=== PATIENT | female | born 1995 | race Caucasian/White ===

== ENCOUNTER 2016-10-05 06:09 | Emergency (ER) | payer MEDICAID ==
[2016-10-05 06:09] VITALS: BMI 25.2
[2016-10-05 06:27] VITALS: BP 128/82; TEMP 98.7; O2SAT 100
[2016-10-05] MEDS ORDERED: Sodium Chloride 0.9% 1,000 ML IV STA (07:20)
[2016-10-05] MEDS ORDERED: Albuterol-Ipratrop 3 mg / 0.5 (3 ml) UD INH STA (07:20)
[2016-10-05 07:26] VITALS: PULSE 103; RESP 14
[2016-10-05 07:32] LABS: BASO # 0.1 K/uL (0.0-0.2); BASO % 0.8 % (0.0-2.0); EOS # 0.2 K/uL (0.0-0.7); EOS % 2.7 % (0.0-4.0); HEMATOCRIT 36.3 % (34.0-47.0); LYMPH # 1.4 K/uL (1.0-4.3); LYMPH % 19.7 % (20.0-40.0); MEAN CORPUSCULAR HEMOGLOBIN 32.5 pg (27.0-31.0); MEAN CORPUSCULAR HGB CONC 34.6 g/dL (33.0-37.0); MEAN PLATELET VOLUME 8.9 fl (7.2-11.7); MONO # 1.1 K/uL (0.0-0.8); MONO % 16.1 % (0.0-10.0); NEUT # 4.3 K/uL (1.8-7.0); NEUT % 60.7 % (50.0-75.0); RED CELL DISTRIBUTION WIDTH 12.4 % (11.5-14.5); WHITE BLOOD COUNT 7.1 K/uL (4.8-10.8)
[2016-10-05 07:43] LABS: ALB/GLOB RATIO 1.4 (1.0-2.1); ALKALINE PHOSPHATASE 110 U/L (38-126); ALT/SGPT 24 U/L (9-52); AST/SGOT 17 U/L (14-36); BILIRUBIN,TOTAL 0.8 mg/dl (0.2-1.3); BLOOD UREA NITROGEN 14 mg/dl (7-17); CALCIUM 9.5 mg/dL (8.4-10.2); CARBON DIOXIDE 26 mmol/L (22-30); CHLORIDE 104 mmol/L (98-107); GFR AFRICAN-AMERICAN > 60; GLUCOSE,RANDOM 89 mg/dL (65-105); POTASSIUM 4.2 MMOL/L (3.6-5.0); SODIUM 144 mmol/l (132-148); TOTAL PROTEIN 7.8 G/DL (6.3-8.2)
--- NOTE | 2016-10-05 08:09 | ED PDOC ---
HPI: CCC, URI, Sore Throat Time Seen by Provider: 10/05/16 07:11 Chief Complaint (Nursing): Chest Pain Chief Complaint (Provider): cough, vomiting, malaise History Per: Patient History/Exam Limitations: no limitations Onset/Duration Of Symptoms: Days (2) Current Symptoms Are (Timing): Still Present Location Of Pain: Diffuse Myalgias, Headache, Other (cough/chest) Sick Contacts (Context): None Associated Symptoms: Chills, Cough, Myalgias, Nausea, Vomiting. denies: Diarrhea Severity: Moderate Additional Complaint(s): 21yo female c/o ongoing cough w/ resultant chest wall discomfort, several episodes post tussive vomiting, headache and malaise. Denies abdominal pain, diarrhea or neck pain/stiffness. Past Medical History Reviewed: Historical Data, Nursing Documentation, Vital Signs Vital Signs: Last Vital Signs Temp 98.7 F 10/05/16 06:25 Pulse 103 H 10/05/16 07:15 Resp 14 10/05/16 06:45 BP 128/82 10/05/16 06:25 Pulse Ox 100 10/05/16 08:09 - Medical History PMH: No Chronic Diseases - Surgical History Surgical History: Tonsillectomy - Family History Family History: States: Unknown Family Hx - Living Arrangements Living Arrangements: With Family - Social History Current smoker - smoking cessation education provided: No Drugs: Denies - Home Medications Home Medications: Ambulatory Orders Medication Instructions Recorded Amoxicillin/Clavulanate [Augmentin 1 tab PO BID #20 tab 05/18/16 875 MG-125 MG] Aspirin/Acetaminophen/Caffeine 1 each PO Q6H PRN #20 tablet 05/18/16 [Excedrin Migraine Caplet] Albuterol HFA [Ventolin HFA 90 2 puff IH Q4 PRN #1 inh 10/05/16 mcg/actuation (8 g)] Benzonatate [Tessalon Perles] 100 mg PO Q8 PRN #15 sgl 10/05/16 Guaifenesin/Pseudoephedrne HCl 1 each PO BID #10 tab.er.12h 10/05/16 [Mucinex D ER 1,200-120 mg Tab] Ibuprofen [Motrin Tab] 600 mg PO Q6 PRN #15 tab 10/05/16 Ondansetron [Zofran] 4 mg PO Q6H PRN #10 tab 10/05/16 levoFLOXacin [Levaquin] 750 mg PO DAILY #7 tab 10/05/16 - Allergies Allergies/Adverse Reactions: Allergies Allergy/AdvReac Type Severity Reaction Status Date / Time No Known Allergies Allergy Verified 07/21/16 00:48 Review of Systems Constitutional: Positive for: Chills, Malaise Eyes: Negative for: Vision Change, Eyelid Inflammation ENT: Positive for: Throat Pain. Negative for: Ear Pain, Ear Discharge, Mouth Swelling, Throat Swelling Cardiovascular: Positive for: Chest Pain. Negative for: Palpitations, Orthopnea , Edema Respiratory: Positive for: Cough, Pleuritic Pain. Negative for: Shortness of Breath, SOB with Exertion, Wheezing Gastrointestinal: Positive for: Nausea, Vomiting. Negative for: Abdominal Pain Genitourinary Female: Negative for: Dysuria, Frequency Musculoskeletal: Negative for: Neck Pain, Shoulder Pain Skin: Negative for: Rash, Lesions, Jaundice Neurological: Positive for: Headache. Negative for: Weakness, Numbness, Dizziness Psych: Negative for: Depression Physical Exam - Reviewed Nursing Documentation Reviewed: Yes Vital Signs Reviewed: Yes - Physical Exam Appears: Positive for: Well, Non-toxic, No Acute Distress Head Exam: Positive for: ATRAUMATIC, NORMAL INSPECTION, NORMOCEPHALIC Skin: Positive for: Normal Color, Warm, DRY Eye Exam: Positive for: EOMI, Normal appearance, PERRL ENT: Positive for: Pharyngeal Erythema (mild, small vesicle soft pallata) Neck: Positive for: Normal, Painless ROM, Supple. Negative for: Limited ROM, Pain On Movement Of Neck Cardiovascular/Chest: Positive for: Regular Rate, Rhythm Respiratory: Positive for: Normal Breath Sounds, Other (+cough w deep inspiration). Negative for: Wheezing, Respiratory Distress Gastrointestinal/Abdominal: Positive for: Bowel Sounds, Soft. Negative for: Tenderness, Guarding Back: Positive for: Normal Inspection Extremity: Positive for: Normal ROM. Negative for: Deformity, Swelling Neurologic/Psych: Positive for: Alert, cap maker II-XII (intact), Oriented. Negative for: Motor/Sensory Deficits - Laboratory Results Result Diagrams: 10/05/16 07:25 10/05/16 07:25 - ECG O2 Sat by Pulse Oximetry: 100 Disposition - Clinical Impression Clinical Impression: Pneumonia, Vomiting - Patient ED Disposition Is Patient to be Admitted: No Counseled Patient/Family Regarding: Studies Performed, Diagnosis, Need For Followup, Rx Given - Disposition Referrals: Vinnie Torres MD [Staff Provider] - Disposition: Routine/Home Disposition Time: 08:40 Condition: STABLE Additional Instructions: Take antibiotics as directed. Avoid physical exertion or exercise for at least 2 weeks. Return to ER for any worse or new symptoms. Prescriptions: levoFLOXacin [Levaquin] 750 mg PO DAILY #7 tab Ibuprofen [Motrin Tab] 600 mg PO Q6 PRN #15 tab PRN Reason: Pain, Moderate (4-7) Guaifenesin/Pseudoephedrne HCl [Mucinex D ER 1,200-120 mg Tab] 1 each PO BID # 10 tab.er.12h Ondansetron [Zofran] 4 mg PO Q6H PRN #10 tab PRN Reason: Nausea/Vomiting Instructions: Community Acquired Pneumonia (ED), Acute Cough (ED)
--- NOTE | 2016-10-05 09:24 | RAD ---
HISTORY: cough COMPARISON: No prior. TECHNIQUE: Chest PA and lateral FINDINGS: LUNGS: Vague increased in density medial aspect right middle lobe could represent some atelectasis however developing infiltrate may be excluded with followup radiographs. PLEURA: No significant pleural effusion identified. No pneumothorax apparent. CARDIOVASCULAR: Normal. OSSEOUS STRUCTURES: No significant abnormalities. VISUALIZED UPPER ABDOMEN: Normal. OTHER FINDINGS: None. IMPRESSION: Vague increased in density medial aspect right middle lobe could represent some atelectasis however developing infiltrate may be excluded with followup radiographs.
--- NOTE | 2016-10-05 14:24 | CARD ---
APPROVED REPORT EKG Measurement Heart [id number] NM 142P78 [id number] <Conclusion> Sinus tachycardia Possible Left atrial enlargement Borderline ECG
== END 2016-10-05 09:32 | disposition home or self-care (01) ==
LOC: H.ER 06:09
DX: J18.9 Pneumonia, unspecified organism (principal); R05 Cough; R07.89 Other chest pain; R11.10 Vomiting, unspecified

== ENCOUNTER 2016-10-05 19:15 | Emergency (ER) | payer MEDICAID ==
[2016-10-05 19:16] VITALS: BMI 25.2
[2016-10-05 19:27] VITALS: BP 143/89; TEMP 98.2; O2SAT 100
[2016-10-05 19:29] VITALS: RESP 20
--- NOTE | 2016-10-05 19:58 | ED PDOC ---
HPI: SOB/CHF/COPD Time Seen by Provider: 10/05/16 19:55 Chief Complaint (Nursing): Shortness Of Breath Chief Complaint (Provider): Cough/Shortness of Breath History Per: Patient Onset/Duration Of Symptoms: Days (x2), Intermittent Episodes Current Symptoms Are (Timing): Still Present Initiating Event: Upper Respiratory Illness (diagnosed with pnemonia during ED visit this morning) Exacerbating Factor(s): Coughing Associated Symptoms: Productive Cough (sputum). denies: Fever Additional Complaint(s): Millicent Tripathi is a 21 year old female, with no pertinent past medical history , who presents to the ED on 10/05/16 with complaints of both intermittent shortness of breath and a productive cough that she has experienced over the past 2 days. Patient reports having been evaluated in the ED for this complaint this morning, at which time she had been diagnosed with pneumonia and was discharged home with Rx for Levaquin, Mucinex and Zofran. Patient has returned to the ED secondary to an adverse reaction to the Mucinex, reporting that she had become nauseous and dizzy after taking it. She also reports a mild "yellowing" of her skin, though this has reportedly since resolved. Denies fever , and reports that though she had taken the first dose of antibiotics approximately 6 hours ago she has not yet taken any of the Zofran. Of note, patient reports having been given a dose of IV steriods during this morning's ED visit. PMD: none Past Medical History Reviewed: Historical Data, Nursing Documentation, Vital Signs Vital Signs: Last Vital Signs Temp 98.2 F 10/05/16 19:26 Pulse 89 10/05/16 21:23 Resp 20 10/05/16 19:26 BP 143/89 10/05/16 19:26 Pulse Ox 100 10/05/16 21:23 - Medical History PMH: Pneumonia - Surgical History Surgical History: Tonsillectomy - Family History Family History: States: Unknown Family Hx - Home Medications Home Medications: Ambulatory Orders Medication Instructions Recorded Amoxicillin/Clavulanate [Augmentin 1 tab PO BID #20 tab 05/18/16 875 MG-125 MG] Aspirin/Acetaminophen/Caffeine 1 each PO Q6H PRN #20 tablet 05/18/16 [Excedrin Migraine Caplet] Benzonatate [Tessalon Perles] 100 mg PO Q8 PRN #15 sgl 10/05/16 Guaifenesin/Pseudoephedrne HCl 1 each PO BID #10 tab.er.12h 10/05/16 [Mucinex D ER 1,200-120 mg Tab] Ibuprofen [Motrin Tab] 600 mg PO Q6 PRN #15 tab 10/05/16 Ondansetron [Zofran] 4 mg PO Q6H PRN #10 tab 10/05/16 levoFLOXacin [Levaquin] 750 mg PO DAILY #7 tab 10/05/16 - Allergies Allergies/Adverse Reactions: Allergies Allergy/AdvReac Type Severity Reaction Status Date / Time No Known Allergies Allergy Verified 07/21/16 00:48 Review of Systems ROS Statement: Except As Marked, All Systems Reviewed And Found Negative Constitutional: Negative for: Fever Respiratory: Positive for: Cough, Shortness of Breath (intermittent), Sputum Gastrointestinal: Positive for: Nausea Skin: Positive for: Other ("yellowing" of skin, since resolved) Neurological: Positive for: Dizziness Physical Exam - Reviewed Nursing Documentation Reviewed: Yes Vital Signs Reviewed: Yes - Physical Exam Appears: Positive for: Non-toxic, No Acute Distress Head Exam: Positive for: ATRAUMATIC, NORMOCEPHALIC Skin: Positive for: Normal Color, Warm, Dry. Negative for: Jaundice Eye Exam: Positive for: Normal appearance, PERRL ENT: Positive for: Normal ENT Inspection Cardiovascular/Chest: Positive for: Regular Rate, Rhythm. Negative for: Murmur Respiratory: Positive for: Normal Breath Sounds. Negative for: Respiratory Distress Extremity: Positive for: Normal ROM (moving all extremities). Negative for: Swelling Neurologic/Psych: Positive for: Alert, Oriented - ECG ECG: Positive for: Interpreted By Me, Viewed By Me ECG Rhythm: Positive for: Normal QRS, Normal ST Segment, Sinus Rhythm Rate: 89 O2 Sat by Pulse Oximetry: 100 (RA) Pulse Ox Interpretation: Normal - Progress Re-evaluation Time: 21:23 Condition: Re-examined, Improved Medical Decision Making Medical Decision Makin:55 Initial Impression: pneumonia Previous records reviewed: 10/05/16 ED Evaluation, CXR FINDINGS: LUNGS: Vague increased in density medial aspect right middle lobe could represent some atelectasis however developing infiltrate may be excluded with followup radiographs. PLEURA: No significant pleural effusion identified. No pneumothorax apparent. CARDIOVASCULAR: Normal. OSSEOUS STRUCTURES: No significant abnormalities. VISUALIZED UPPER ABDOMEN: Normal. OTHER FINDINGS: None. IMPRESSION: Vague increased in density medial aspect right middle lobe could represent some atelectasis however developing infiltrate may be excluded with followup radiographs. Initial Plan: * EKG * Duonebs 3ml INH * Peak Flow Pre/Post Treatment * Reevaluation O2 saturation is normal in ED on room air. Scribe Attestation: Documented by Danica Khan, acting as a scribe for Sosa Sidhu MD. Provider Scribe Attestation: All medical record entries made by the Scribe were at my direction and personally dictated by me. I have reviewed the chart and agree that the record accurately reflects my personal performance of the history, physical exam, medical decision making, and the department course for this patient. I have also personally directed, reviewed, and agree with the discharge instructions and disposition. Disposition - Clinical Impression Clinical Impression: Pneumonia - Patient ED Disposition Is Patient to be Admitted: No Doctor Will See Patient In The: Office Counseled Patient/Family Regarding: Studies Performed, Diagnosis, Need For Followup - Disposition Referrals: [facility] [Outside] Disposition: Routine/Home Disposition Time: 21:24 Condition: GOOD Additional Instructions: Take antibiotics as instructed. Follow up with your PCP in 2-3 days. Prescriptions: Benzonatate [Tessalon Perles] 100 mg PO Q8 PRN #15 sgl PRN Reason: Cough Instructions: Pneumonia (ED)
[2016-10-05] MEDS ORDERED: Albuterol-Ipratrop 3 mg / 0.5 (3 ml) UD INH STA (20:11)
[2016-10-05] MEDS ORDERED: Albuterol-Ipratrop 3 mg / 0.5 (3 ml) UD ONE (20:44)
[2016-10-05 21:24] VITALS: PULSE 89
--- NOTE | 2016-10-06 09:04 | CARD ---
APPROVED REPORT EKG Measurement Heart [id number] FL [id number] <Conclusion> Normal sinus rhythm Normal ECG
== END 2016-10-05 21:36 | disposition home or self-care (01) ==
LOC: H.ER 19:15
DX: J18.9 Pneumonia, unspecified organism (principal); R06.02 Shortness of breath

== ENCOUNTER 2017-02-19 18:06 | Emergency (ER) | payer MEDICAID ==
[2017-02-19 18:06] VITALS: BMI 25.2
[2017-02-19 18:14] VITALS: BP 128/76; PULSE 85; RESP 16; TEMP 98.7; O2SAT 100
[2017-02-19] MEDS ORDERED: Lactated Ringer's 1,000 ML IV STA (18:43)
[2017-02-19 19:06] LABS: BASO # 0.1 K/uL (0.0-0.2); BASO % 0.5 % (0.0-2.0); EOS # 0.2 K/uL (0.0-0.7); EOS % 2.4 % (0.0-4.0); HEMOGLOBIN 12.4 g/dL (12.0-16.0); LYMPH # 2.9 K/uL (1.0-4.3); LYMPH % 29.5 % (20.0-40.0); MEAN CELL VOLUME 91.7 fl (81.0-99.0); MEAN CORPUSCULAR HEMOGLOBIN 30.9 pg (27.0-31.0); MEAN CORPUSCULAR HGB CONC 33.7 g/dL (33.0-37.0); MEAN PLATELET VOLUME 8.4 fl (7.2-11.7); MONO # 0.8 K/uL (0.0-0.8); MONO % 8.4 % (0.0-10.0); NEUT # 5.9 K/uL (1.8-7.0); NEUT % 59.2 % (50.0-75.0); RBC 4.02 Mil/uL (3.80-5.20); RED CELL DISTRIBUTION WIDTH 14.7 % (11.5-14.5); WHITE BLOOD COUNT 9.9 K/uL (4.8-10.8)
[2017-02-19 19:15] LABS: SQUAMOUS EPITHIAL 18 /hpf (0-5); URINE BILIRUBIN NEGATIVE (NEGATIVE); URINE BLOOD NEGATIVE (NEGATIVE); URINE CLARITY CLOUDY (Clear); URINE COLOR YELLOW (YELLOW); URINE GLUCOSE (UA) NEG (Normal); URINE LEUKOCYTE ESTERASE SMALL Leu/uL (Negative); URINE NITRATE NEGATIVE (NEGATIVE); URINE PROTEIN 30 mg/dL (NEGATIVE)
--- NOTE | 2017-02-19 19:28 | ED PDOC ---
HPI: Abdomen Time Seen by Provider: 02/19/17 18:23 Chief Complaint (Nursing): Abdominal Pain Chief Complaint (Provider): Right pelvic pain History Per: Patient History/Exam Limitations: no limitations Onset/Duration Of Symptoms: Days (x3) Current Symptoms Are (Timing): Still Present Additional Complaint(s): Millicent Tripathi is a 21 year old female who presents to the emergency department with a complaint of increasing right pelvic pain associated with nausea and breast tenderness ongoing for 3 days. Denied vomiting, lightheadedness, dizziness, dysuria, hematuria, vaginal bleeding or discharge. Patient stated she is sexually active with her , does not use contraceptives, and does not remember her last menstrual period because of irregular cycle. She noted she had spotted bleeding in 01/2017. PMD: none provided Past Medical History Reviewed: Historical Data, Nursing Documentation, Vital Signs Vital Signs: Last Vital Signs Temp 98.7 F 02/19/17 18:10 Pulse 85 02/19/17 18:10 Resp 16 02/19/17 18:10 BP 128/76 02/19/17 18:10 Pulse Ox 100 02/20/17 16:33 - Medical History PMH: Pneumonia - Surgical History Surgical History: Tonsillectomy - Family History Family History: States: Hypertension - Social History Current smoker - smoking cessation education provided: No Ex-Smoker (has not smoked in the last 12 months): Yes Alcohol: None Drugs: Denies - Home Medications Home Medications: Ambulatory Orders Medication Instructions Recorded Amoxicillin/Clavulanate [Augmentin 1 tab PO BID #20 tab 05/18/16 875 MG-125 MG] Aspirin/Acetaminophen/Caffeine 1 each PO Q6H PRN #20 tablet 05/18/16 [Excedrin Migraine Caplet] Albuterol HFA [Ventolin HFA 90 2 puff IH Q4 PRN #1 inh 10/05/16 mcg/actuation (8 g)] Benzonatate [Tessalon Perles] 100 mg PO Q8 PRN #15 sgl 10/05/16 Guaifenesin/Pseudoephedrne HCl 1 each PO BID #10 tab.er.12h 10/05/16 [Mucinex D ER 1,200-120 mg Tab] Ibuprofen [Motrin Tab] 600 mg PO Q6 PRN #15 tab 10/05/16 Ondansetron [Zofran] 4 mg PO Q6H PRN #10 tab 10/05/16 levoFLOXacin [Levaquin] 750 mg PO DAILY #7 tab 10/05/16 Multivit/Folic Acid/I 1 tab PO DAILY #100 tab 02/19/17 [ Plus] - Allergies Allergies/Adverse Reactions: Allergies Allergy/AdvReac Type Severity Reaction Status Date / Time No Known Allergies Allergy Verified 07/21/16 00:48 Review of Systems ROS Statement: Except As Marked, All Systems Reviewed And Found Negative Constitutional: Positive for: Other (breast tenderness) Gastrointestinal: Positive for: Nausea. Negative for: Vomiting Genitourinary Female: Positive for: Pelvic Pain (right-sided, increases). Negative for: Dysuria, Frequency, Hematuria, Vaginal Discharge, Vaginal Bleeding Neurological: Negative for: Dizziness (or lightheadedness) Physical Exam - Reviewed Nursing Documentation Reviewed: Yes Vital Signs Reviewed: Yes - Physical Exam Appears: Positive for: Non-toxic, No Acute Distress Head Exam: Positive for: ATRAUMATIC, NORMOCEPHALIC Skin: Positive for: Warm, Dry Eye Exam: Positive for: EOMI, PERRL ENT: Negative for: Pharyngeal Erythema, Tonsillar Exudate Neck: Positive for: Painless ROM, Supple Cardiovascular/Chest: Positive for: Regular Rate, Rhythm. Negative for: Murmur Respiratory: Positive for: Normal Breath Sounds. Negative for: Respiratory Distress Gastrointestinal/Abdominal: Positive for: Bowel Sounds, Soft, Tenderness (RLQ tenderness to deep palpation). Negative for: Mass, Distended, Guarding, Rebound Back: Positive for: Normal Inspection. Negative for: Muscle Spasm Extremity: Positive for: Normal ROM. Negative for: Deformity Lymphatic: Negative for: Adenopathy Neurologic/Psych: Positive for: Alert. Negative for: Motor/Sensory Deficits - Laboratory Results Result Diagrams: 02/19/17 18:56 - ECG O2 Sat by Pulse Oximetry: 100 (RA) Pulse Ox Interpretation: Normal - Progress Re-evaluation Time: 21:00 Condition: Unchanged - Critical Care Total Time (In Min): 45 Documented Critical Care: Time excludes all time spent performint seperately billable procedures Medical Decision Making Medical Decision Making: Initial Impression: Pelvic pain; Differential diagnosis: Etopic ; ovarian cyst, UTI, round ligament pain. Others considered and not listed here. Initial Plan: * BETA-HCG * Urine dipstick * Urine * Lactated ringer's 1,000ml IV per 1,000mls/hr * US transvag Time: 1824 --UA: positive for . Time: 2125 --US transvag FINDINGS: Gestation: Probable gestational sac. No yolk sac. No pole. Mean sac diameter of 0.56 cm, out of range. Uterus/cervix: No subchorionic hemorrhage. No cervical dilatation or effacement. Ovaries: RIGHT ovary: 2.3 x 1.8 x 2.3 cm anechoic lesion. LEFT ovary: Normal. No adnexal masses. Free fluid: No significant free fluid. IMPRESSION: 1. Probable intrauterine , of uncertain viability. Recommend followup. 2. RIGHT ovarian cyst. 3. Incidental/non-acute findings are described above On reeval pt stable. DW pt findings and plan of care. Need for OB follow up emphasized. ~ Scribe Attestation: Documented by Jeanine Steve, acting as a scribe for Tiana Sidhu MD. Provider Scribe Attestation: All medical record entries made by the Scribe were at my direction and personally dictated by me. I have reviewed the chart and agree that the record accurately reflects my personal performance of the history, physical exam, medical decision making, and the department course for this patient. I have also personally directed, reviewed, and agree with the discharge instructions and disposition. Disposition - Clinical Impression Clinical Impression: Abdominal pain in , Ovarian cyst Counseled Patient/Family Regarding: Studies Performed, Diagnosis, Need For Followup, Rx Given - Disposition Referrals: [facility] [Outside] [facility] [Outside] - 02/20/17 Disposition: Routine/Home Disposition Time: 21:30 Condition: GOOD Prescriptions: Multivit/Folic Acid/I [ Plus] 1 tab PO DAILY #100 tab Instructions: Ovarian Cyst (ED), Abdominal Pain in (ED) Forms: [employer] (Kiswahili)
--- NOTE | 2017-02-19 21:27 | US ---
EXAM: US , Transvaginal CLINICAL HISTORY: 21 years old, female; Pain; Other: Rt adnexa pain; Gestational age or lmp: Unknown; Additional info: r adnexal pain TECHNIQUE: Real-time transvaginal obstetrical ultrasound of the maternal pelvis and a first trimester with image documentation. Transvaginal imaging was used for better evaluation of the fetus and adnexa. COMPARISON: US - OB , LIMITED 11/02/2015 1:14:20 PM FINDINGS: Gestation: Probable gestational sac. No yolk sac. No pole. Mean sac diameter of 0.56 cm, out of range. Uterus/cervix: No subchorionic hemorrhage. No cervical dilatation or effacement. Ovaries: RIGHT ovary: 2.3 x 1.8 x 2.3 cm anechoic lesion. LEFT ovary: Normal. No adnexal masses. Free fluid: No significant free fluid. IMPRESSION: 1. Probable intrauterine , of uncertain viability. Recommend followup. 2. RIGHT ovarian cyst. 3. Incidental/non-acute findings are described above.
== END 2017-02-19 22:02 | disposition home or self-care (01) ==
LOC: H.ER 18:06
DX: O26.91 Pregnancy related conditions, unspecified, first trimester (principal); R10.2 Pelvic and perineal pain; N83.201 Unspecified ovarian cyst, right side; Z87.891 Personal history of nicotine dependence

== ENCOUNTER 2017-04-28 05:51 | Emergency (ER) | payer MEDICAID ==
[2017-04-28 05:51] VITALS: BMI 25.2
[2017-04-28 06:08] VITALS: O2SAT 100
--- NOTE | 2017-04-28 06:54 | ED PDOC ---
HPI: Chest Pain Time Seen by Provider: 04/28/17 06:06 Chief Complaint (Nursing): Chest Pain Chief Complaint (Provider): Shortness of breath, palpitations History Per: Patient History/Exam Limitations: no limitations Onset/Duration Of Symptoms: Hrs Current Symptoms Are (Timing): Better Context: Other (life stressors) Additional Complaint(s): 21yo female, presents to the ED for evaluation of plapitations, shortness of breath and chest pain. Patient states she has 2 young children at home and has not been able to sleep; she reports feeling an impending sense of doom and as if she is going to . Patient states she had similar symptoms in the past which had resolved upon arrival to the ED. Patient states currently she feels better than before but her symptoms are still present. She offers no other medical complaints. Past Medical History Reviewed: Historical Data, Nursing Documentation, Vital Signs Vital Signs: Last Vital Signs Temp 98.0 F 04/28/17 07:32 Pulse 78 04/28/17 07:32 Resp 14 04/28/17 07:32 BP 118/80 04/28/17 07:32 Pulse Ox 100 04/28/17 07:32 - Medical History PMH: No Chronic Diseases, Pneumonia - Surgical History Surgical History: Tonsillectomy - Family History Family History: States: Unknown Family Hx, Hypertension - Social History Current smoker - smoking cessation education provided: No Ex-Smoker (has not smoked in the last 12 months): No Alcohol: None Drugs: Denies - Home Medications Home Medications: Ambulatory Orders Medication Instructions Recorded Amoxicillin/Clavulanate [Augmentin 1 tab PO BID #20 tab 05/18/16 875 MG-125 MG] Aspirin/Acetaminophen/Caffeine 1 each PO Q6H PRN #20 tablet 05/18/16 [Excedrin Migraine Caplet] Albuterol HFA [Ventolin HFA 90 2 puff IH Q4 PRN #1 inh 10/05/16 mcg/actuation (8 g)] Benzonatate [Tessalon Perles] 100 mg PO Q8 PRN #15 sgl 10/05/16 Guaifenesin/Pseudoephedrne HCl 1 each PO BID #10 tab.er.12h 10/05/16 [Mucinex D ER 1,200-120 mg Tab] Ibuprofen [Motrin Tab] 600 mg PO Q6 PRN #15 tab 10/05/16 Ondansetron [Zofran] 4 mg PO Q6H PRN #10 tab 10/05/16 levoFLOXacin [Levaquin] 750 mg PO DAILY #7 tab 10/05/16 Multivit/Folic Acid/I 1 tab PO DAILY #100 tab 02/19/17 [ Plus] ALPRAZolam [Xanax] 0.5 mg PO Q8 #12 tab 04/28/17 - Allergies Allergies/Adverse Reactions: Allergies Allergy/AdvReac Type Severity Reaction Status Date / Time No Known Allergies Allergy Verified 04/28/17 06:05 Review of Systems ROS Statement: Except As Marked, All Systems Reviewed And Found Negative Cardiovascular: Positive for: Chest Pain, Palpitations Respiratory: Positive for: Shortness of Breath Psych: Positive for: Anxiety Physical Exam - Reviewed Nursing Documentation Reviewed: Yes Vital Signs Reviewed: Yes - Physical Exam Neck: Positive for: Normal Cardiovascular/Chest: Positive for: Regular Rate, Rhythm Respiratory: Positive for: Normal Breath Sounds. Negative for: Respiratory Distress Neurologic/Psych: Positive for: Alert, Oriented, Mood/Affect (tearful and anxious appearing) - ECG O2 Sat by Pulse Oximetry: 100 (RA) Pulse Ox Interpretation: Normal Medical Decision Making Medical Decision Making: Time: 624 Impression: Panic attack Plan: -- Ativan 2mg PO Time: 0700 pt feeling much better, referred to psych clinic. will prescribe short course of benzos, addictive potential discussed, patient understadns and agrees to only use as absolutely needed. Scribe Attestation: Documented by Bailey Knight acting as a scribe for Marino Albarado MD. Provider Attestation: All medical record entries made by the Scribe were at my direction and personally dictated by me. I have reviewed the chart and agree that the record accurately reflects my personal performance of the history, physical exam, medical decision making, and the department course for this patient. I have also personally directed, reviewed, and agree with the discharge instructions and disposition. Disposition - Clinical Impression Clinical Impression: Anxiety - Patient ED Disposition Is Patient to be Admitted: Transfer of Care - Disposition Referrals: [facility] [Outside] Disposition: Routine/Home Disposition Time: 07:00 Condition: STABLE Prescriptions: ALPRAZolam [Xanax] 0.5 mg PO Q8 #12 tab Instructions: Anxiety (ED) Forms: [employer] ([place] African) Patient Signed Over To: Blair Brody Handoff Comments: pending reassessment
[2017-04-28 07:33] VITALS: BP 118/80; PULSE 78; RESP 14; TEMP 98
== END 2017-04-28 07:33 | disposition home or self-care (01) ==
LOC: H.ER 05:51
DX: F41.9 Anxiety disorder, unspecified (principal); Z87.891 Personal history of nicotine dependence

== ENCOUNTER 2017-06-05 20:49 | Emergency (ER) | payer MEDICAID ==
[2017-06-05 20:49] VITALS: BMI 25.2
[2017-06-05 21:35] VITALS: BP 131/84; PULSE 90; RESP 18; TEMP 98.1; O2SAT 100
--- NOTE | 2017-06-05 21:36 | ED PDOC ---
HPI: General Adult Time Seen by Provider: 06/05/17 21:35 Chief Complaint (Nursing): Breast Problem Chief Complaint (Provider): breast pain History Per: Patient Additional Complaint(s): 21-year-old female presents to emergency department with bilateral breast pain ongoing for 3 months. Patient was seen by her primary doctor in [facility] about one month ago and was sent for breast sonogram. Patient had sonogram completed but has not followed up yet with her primary doctor for results. She' s been taking Tylenol which has not helped her pain. Patient denies any drainage or bleeding from the nipples. Patient states when she palpates her breasts she feels small cysts bilaterally. PMD: in [facility] Past Medical History Reviewed: Historical Data, Nursing Documentation, Vital Signs Vital Signs: Last Vital Signs Temp 98.1 F 06/05/17 21:32 Pulse 90 06/05/17 21:32 Resp 18 06/05/17 21:32 BP 131/84 06/05/17 21:32 Pulse Ox 100 06/05/17 21:36 - Medical History PMH: No Chronic Diseases - Surgical History Surgical History: Tonsillectomy - Family History Family History: States: No Known Family Hx, Hypertension - Living Arrangements Living Arrangements: With Family - Social History Current smoker - smoking cessation education provided: No Alcohol: Social Drugs: Denies - Home Medications Home Medications: Ambulatory Orders Medication Instructions Recorded Amoxicillin/Clavulanate [Augmentin 1 tab PO BID #20 tab 05/18/16 875 MG-125 MG] Aspirin/Acetaminophen/Caffeine 1 each PO Q6H PRN #20 tablet 05/18/16 [Excedrin Migraine Caplet] Albuterol HFA [Ventolin HFA 90 2 puff IH Q4 PRN #1 inh 10/05/16 mcg/actuation (8 g)] Benzonatate [Tessalon Perles] 100 mg PO Q8 PRN #15 sgl 10/05/16 Guaifenesin/Pseudoephedrne HCl 1 each PO BID #10 tab.er.12h 10/05/16 [Mucinex D ER 1,200-120 mg Tab] Ibuprofen [Motrin Tab] 600 mg PO Q6 PRN #15 tab 10/05/16 Ondansetron [Zofran] 4 mg PO Q6H PRN #10 tab 10/05/16 levoFLOXacin [Levaquin] 750 mg PO DAILY #7 tab 10/05/16 Multivit/Folic Acid/I 1 tab PO DAILY #100 tab 02/19/17 [ Plus] ALPRAZolam [Xanax] 0.5 mg PO Q8 #12 tab 04/28/17 Ibuprofen [Motrin Tab] 800 mg PO Q8 PRN #20 tab 06/05/17 - Allergies Allergies/Adverse Reactions: Allergies Allergy/AdvReac Type Severity Reaction Status Date / Time No Known Allergies Allergy Verified 04/28/17 06:05 Review of Systems ROS Statement: Except As Marked, All Systems Reviewed And Found Negative Cardiovascular: Negative for: Chest Pain Respiratory: Negative for: Cough, Shortness of Breath Skin: Positive for: Other (bilateral breast pain for the past 3 months) Physical Exam - Reviewed Nursing Documentation Reviewed: Yes Vital Signs Reviewed: Yes - Physical Exam Appears: Positive for: Well, Non-toxic, No Acute Distress Skin: Negative for: Rash Eye Exam: Positive for: Normal appearance Cardiovascular/Chest: Positive for: Other (Tenderness to left and right breasts bilaterally, no erythema, warmth or ecchymosis. No skin dimpling, multiple cysts palpated to both breasts. ) Respiratory: Positive for: Normal Breath Sounds. Negative for: Wheezing, Respiratory Distress Back: Positive for: Normal Inspection Extremity: Positive for: Normal ROM. Negative for: Pedal Edema Neurologic/Psych: Positive for: Alert, Oriented - Laboratory Results Urine POC: Negative - ECG O2 Sat by Pulse Oximetry: 100 Pulse Ox Interpretation: Normal Medical Decision Making Medical Decision Makin-year-old female with bilateral breast pain. Plan: test PO motrin test is negative. Patient states Motrin helped the pain. Patient already had b/l breast sonogram and is scheduled to follow up next week with her primary doctor to discuss results. She was given prescription for Motrin for pain management. Disposition - Clinical Impression Clinical Impression: Pain of breast - Patient ED Disposition Is Patient to be Admitted: No Counseled Patient/Family Regarding: Need For Followup, Rx Given - Disposition Referrals: [facility] [Outside] Disposition: Routine/Home Disposition Time: 22:32 Condition: STABLE Additional Instructions: Take prescription medications as directed as needed for pain. Follow up with her primary doctor to discuss results of sonogram. Prescriptions: Ibuprofen [Motrin Tab] 800 mg PO Q8 PRN #20 tab PRN Reason: Pain, Moderate (4-7) Instructions: Breast Self Exam for Women (ED) Forms: [employer] (Djiboutian)
== END 2017-06-05 23:29 | disposition home or self-care (01) ==
LOC: H.ER 20:49
DX: N64.4 Mastodynia (principal)

== ENCOUNTER 2017-08-30 01:28 | Emergency (ER) | payer MEDICAID ==
[2017-08-30 01:29] VITALS: BMI 25.2
[2017-08-30 01:44] VITALS: BP 143/92; PULSE 102; RESP 18; TEMP 98.8; O2SAT 100
[2017-08-30] MEDS ORDERED: Apap-Butalbital-Caffeine 325-50-40mg Tab PO STA (02:49)
[2017-08-30] MEDS ORDERED: Apap-Butalbital-Caffeine 325-50-40mg Tab ONE (03:42)
--- NOTE | 2017-08-30 03:46 | ED PDOC ---
HPI: Chest Pain Time Seen by Provider: 08/30/17 02:22 Chief Complaint (Nursing): Upper Extremity Problem/Injury Chief Complaint (Provider): chest pain, left arm pain, and head ache History Per: Patient History/Exam Limitations: no limitations Onset/Duration Of Symptoms: Days (1x) Current Symptoms Are (Timing): Better Additional Complaint(s): Millicent Tripathi, a female with a past medical history of anxiety presents to the ED complaining of chest pain, left arm pain, and headache. Reports of chest pain onset four days ago with associated symptoms of arm pain. Also has anxiety and poor sleep pattern due to moving and responsibilities as a parent. At times, she feels nauseous and has shortness of breath. Denies of cough, vomiting, and diarrhea. PMD: Provider TBD Past Medical History Reviewed: Historical Data, Nursing Documentation, Vital Signs Vital Signs: Last Vital Signs Temp 98.8 F 08/30/17 01:40 Pulse 102 H 08/30/17 01:40 Resp 18 08/30/17 01:40 BP 143/92 H 08/30/17 01:40 Pulse Ox 100 08/30/17 01:40 - Medical History PMH: Anxiety, Pneumonia Denies: Diabetes, Hepatitis, HIV, HTN, Seizures, Sexually Transmitted Disease - Surgical History Surgical History: Tonsillectomy - Family History Family History: States: Unknown Family Hx, Hypertension - Home Medications Home Medications: Ambulatory Orders Medication Instructions Recorded Amoxicillin/Clavulanate [Augmentin 1 tab PO BID #20 tab 05/18/16 875 MG-125 MG] Aspirin/Acetaminophen/Caffeine 1 each PO Q6H PRN #20 tablet 05/18/16 [Excedrin Migraine Caplet] Albuterol HFA [Ventolin HFA 90 2 puff IH Q4 PRN #1 inh 10/05/16 mcg/actuation (8 g)] Benzonatate [Tessalon Perles] 100 mg PO Q8 PRN #15 sgl 10/05/16 Guaifenesin/Pseudoephedrne HCl 1 each PO BID #10 tab.er.12h 10/05/16 [Mucinex D ER 1,200-120 mg Tab] Ibuprofen [Motrin Tab] 600 mg PO Q6 PRN #15 tab 10/05/16 Ondansetron [Zofran] 4 mg PO Q6H PRN #10 tab 10/05/16 levoFLOXacin [Levaquin] 750 mg PO DAILY #7 tab 10/05/16 Multivit/Folic Acid/I 1 tab PO DAILY #100 tab 02/19/17 [ Plus] ALPRAZolam [Xanax] 0.5 mg PO Q8 #12 tab 04/28/17 Ibuprofen [Motrin Tab] 800 mg PO Q8 PRN #20 tab 06/05/17 - Allergies Allergies/Adverse Reactions: Allergies Allergy/AdvReac Type Severity Reaction Status Date / Time No Known Allergies Allergy Verified 04/28/17 06:05 Review of Systems ROS Statement: Except As Marked, All Systems Reviewed And Found Negative Cardiovascular: Positive for: Chest Pain (4 days ago) Respiratory: Positive for: Shortness of Breath Gastrointestinal: Positive for: Nausea Musculoskeletal: Positive for: Arm Pain (left) Neurological: Positive for: Headache Physical Exam - Reviewed Nursing Documentation Reviewed: Yes Vital Signs Reviewed: Yes - Physical Exam Appears: Positive for: Well, Non-toxic, No Acute Distress Head Exam: Positive for: ATRAUMATIC, NORMAL INSPECTION, NORMOCEPHALIC Skin: Positive for: Normal Color, Warm, Dry Eye Exam: Positive for: EOMI, Normal appearance, PERRL ENT: Positive for: Normal ENT Inspection Neck: Positive for: Normal, Painless ROM, Supple. Negative for: Decreased ROM Cardiovascular/Chest: Positive for: Regular Rate, Rhythm. Negative for: Murmur , Bradycardia, Tachycardia Respiratory: Positive for: Normal Breath Sounds. Negative for: Decreased Breath Sounds, Accessory Muscle Use, Wheezing Gastrointestinal/Abdominal: Positive for: Normal Exam, Bowel Sounds, Soft. Negative for: Tenderness, Guarding Back: Positive for: Normal Inspection. Negative for: L CVA Tenderness, R CVA Tenderness Extremity: Positive for: Normal ROM. Negative for: Tenderness, Pedal Edema, Deformity Neurologic/Psych: Positive for: Alert, Oriented (x3), Gait - ECG O2 Sat by Pulse Oximetry: 100 (RA) Pulse Ox Interpretation: Normal Medical Decision Making Medical Decision Making: Time: 02:49 Initial Impression: 21 y/o female with chest pain and anxiety Initial Plan: --EKG --Crisis Evaluation --Fioricet 1 tab --Reevaluation Clinical Impression: Headache Upon provider evaluation patient is medically stable, and requires no further treatment in the ED at this time. Upon crisis evaluation, patient will be discharged. Counseling was provided and all questions were answered regarding diagnosis and need for follow up with PMD. There is agreement to discharge plan. Return if symptoms persist or worsen. Documented by Aracelis Parker acting as a scribe for Jair Tafoya MD. All medical record entries made by the Scribe were at my direction and personally dictated by me. I have reviewed the chart and agree that the record accurately reflects my personal performance of the history, physical exam, medical decision making, and the department course for this patient. I have also personally directed, reviewed, and agree with the discharge instructions and disposition. Disposition - Clinical Impression Clinical Impression: Anxiety, Headache - Patient ED Disposition Is Patient to be Admitted: No - Disposition Disposition: Routine/Home Disposition Time: 03:50 Condition: STABLE Instructions: Generalized Anxiety Disorder, Headache, Adult, Tips to Help You Worry Less Forms: [employer] (Honduran)
--- NOTE | 2017-08-30 23:11 | CARD ---
APPROVED REPORT EKG Measurement Heart [id number] <Conclusion> Normal sinus rhythm Normal ECG
== END 2017-08-30 03:55 | disposition home or self-care (01) ==
LOC: H.ER 01:28
DX: F41.9 Anxiety disorder, unspecified (principal); R51 Headache